=== PATIENT | male | born 1975 | race Two or more races ===

== ENCOUNTER 2018-03-10 23:19 | Emergency (ER) | payer OTHER ==
[~2018-03-10] VITALS: Ht 170.2 cm; Wt 68.0 kg
[2018-03-11] MEDS ORDERED: SINGULAIR 10MG10 MG PO (03:49)
[2018-03-11] MEDS ORDERED: SYMBICORT 16010.2 GM IH (03:49)
[2018-03-11] MEDS ORDERED: ALBUTEROL2.5 MG/3 M IH (03:49)
[2018-03-11] MEDS ORDERED: PEPCID40 MG PO (03:49)
[2018-03-11] MEDS ORDERED: ZYNCOF 20-400120 ML PO (03:49)
[2018-03-11] MEDS ORDERED: ZOFRAN ODT4 MG PO (03:49)
== END 2018-03-11 04:04 | disposition home or self-care (01) ==
LOC: ER 23:19
DX: J45.998 Other asthma (principal); R10.13 Epigastric pain

== ENCOUNTER → 2018-05-23 | Emergency (ER) | payer OTHER ==
[~2018-05-23] VITALS: Ht 170.2 cm; Wt 68.0 kg
[~2018-05-23] MED LIST: ALBUTEROL2.5 MG/3 M IH; KETO10TA2 PO; NORFLEX100MG PO; PEPCID40 MG PO; SINGULAIR 10MG10 MG PO; SYMBICORT 16010.2 GM IH; ZOFRAN ODT4 MG PO; ZYNCOF 20-400120 ML PO
== END | disposition home or self-care (01) ==
LOC: ER 23:49
DX: J45.998 Other asthma (principal); M54.5 Low back pain

== ENCOUNTER 2018-06-21 22:11 | Emergency (ER) | payer OTHER ==
[~2018-06-21] VITALS: Ht 170.2 cm; Wt 68.0 kg
== END 2018-06-22 02:23 | disposition left against medical advice (07) ==
LOC: ER 22:11
DX: Z53.20 Procedure and treatment not carried out because of patient's decision for unspecified reasons (principal)

== ENCOUNTER 2018-10-06 13:16 | Emergency (ER) | payer OTHER ==
[~2018-10-06] VITALS: Ht 170.2 cm; Wt 66.7 kg
[2018-10-06] MEDS ORDERED: PROVENTIL S2 MG/5 ML (13:39)
== END 2018-10-06 18:55 | disposition home or self-care (01) ==
LOC: ER 13:16
DX: J44.9 Chronic obstructive pulmonary disease, unspecified (principal); J20.9 Acute bronchitis, unspecified